=== PATIENT | female | born 1935 | race Caucasian/White ===

== ENCOUNTER 2016-11-19 10:30 | Emergency (ER) | payer MEDICARE, OTHER ==
[~2016-11-19] VITALS: Ht 165.1 cm; Wt 48.5 kg
[~2016-11-19 10:30] MED LIST: ESTR0.3T PO; NADO40TA; TELM80TA
[2016-11-19] MEDS ORDERED: cloNIDine HCL 0.1 MG TAB PO ONE (11:45)
[2016-11-19 12:45] LABS: Basophils # (auto) 0.1 uL; Basophils % (auto) 0.5 % (0.0-2.0); Eosinophils # (auto) 0.1 uL; Eosinophils % (auto) 0.7 % (0.0-7.0); Hematocrit 41.5 % (36.0-46.0); Hemoglobin 13.7 g/dL (12.2-16.2); Lymphocytes # (auto) 4.5 uL; Lymphocytes % (auto) 41.6 % (10.0-50.0); Mean Corpuscular Hemoglobin 30.7 pg (28.0-32.0); Mean Corpuscular Hgb Conc. 33.2 g/dL (32.0-36.0); Mean Corpuscular Volume 92.7 fL (80.0-100.0); Mean Platelet Volume 10.6 fL (7.4-10.4); Monocytes # (auto) 0.7 uL; Monocytes % (auto) 6.6 % (0.0-12.0); Neutrophils # (auto) 5.5 uL; Neutrophils % (auto) 50.6 % (37.0-80.0); Platelet Count (auto) 193 10^3/uL (140-450); Red Cell Distribution Width 13.9 % (11.6-16.0); White Blood Cell 10.8 10^3/uL (4.4-10.8)
[2016-11-19 13:04] VITALS: BP 147/93
[2016-11-19 13:13] LABS: Albumin 3.1 g/dL (3.4-5.0); BUN/Creatinine Ratio 20.2; Bilirubin, Total 0.4 mg/dL (0.2-1.0); Calcium 8.7 mg/dL (8.5-10.1); Magnesium 2.7 mg/dL (1.6-2.6); Potassium 4.5 mmol/L (3.5-5.1); Total Protein 7.1 g/dL (6.4-8.2)
== END 2016-11-19 14:09 | disposition home or self-care (01) ==
LOC: ER 10:30
DX: R07.89 Other chest pain (principal); I16.0 Hypertensive urgency; K21.9 Gastro-esophageal reflux disease without esophagitis; I10 Essential (primary) hypertension; Z87.891 Personal history of nicotine dependence; Z88.6 Allergy status to analgesic agent
CPT/HCPCS: 36415; 71020; 80053; 83735; 84484; 85025; 93005; 94761; 99285; J7030

== ENCOUNTER → 2017-01-14 | Outpatient (CLI) | payer MEDICARE, OTHER ==
[~2017-01-14] MED LIST changes: +APIX2.5T PO; +ASPI81CH43 PO; +ATOR20TA50 PO; +CLON0.1T PO; +LEVO500T3 PO; +LOSA100T27 PO; +MET50T PO
== END | disposition home or self-care (01) ==
LOC: XYW 09:55
PROVIDERS: ATTEND Internal Medicine Cardiovascular Disease
DX: I11.9 Hypertensive heart disease without heart failure (principal); I70.0 Atherosclerosis of aorta; I08.0 Rheumatic disorders of both mitral and aortic valves; I27.2 Other secondary pulmonary hypertension
CPT/HCPCS: 93306

== ENCOUNTER 2017-02-06 19:48 | Emergency (ER) | payer MEDICARE, OTHER ==
[~2017-02-06] VITALS: Ht 167.6 cm; Wt 63.5 kg
[~2017-02-06 19:48] MED LIST changes: +ATOR10TA52 PO; +CLO01T PO; +EST0625T PO; +METO-159 PO
[2017-02-06 19:57] VITALS: BP 192/71
[2017-02-06 20:30] LABS: Basophils # (auto) 0.1 uL; Basophils % (auto) 0.9 % (0.0-2.0); Eosinophils # (auto) 0.1 uL; Eosinophils % (auto) 1.2 % (0.0-7.0); Hematocrit 36.2 % (36.0-46.0); Hemoglobin 12.1 g/dL (12.2-16.2); Lymphocytes # (auto) 3.1 uL; Lymphocytes % (auto) 33.5 % (10.0-50.0); Mean Corpuscular Hemoglobin 30.8 pg (28.0-32.0); Mean Corpuscular Hgb Conc. 33.5 g/dL (32.0-36.0); Mean Corpuscular Volume 91.7 fL (80.0-100.0); Mean Platelet Volume 9.9 fL (7.4-10.4); Monocytes # (auto) 0.7 uL; Monocytes % (auto) 8.1 % (0.0-12.0); Neutrophils # (auto) 5.2 uL; Neutrophils % (auto) 56.3 % (37.0-80.0); Platelet Count (auto) 190 10^3/uL (140-450); White Blood Cell 9.2 10^3/uL (4.4-10.8)
[2017-02-06 21:11] LABS: Albumin 2.5 g/dL (3.4-5.0); Anion Gap 10 (5-15); Aspartate Aminotransferase 29 U/L (15-37); BUN/Creatinine Ratio 34.7; Blood Urea Nitrogen 25 mg/dL (7-18); Calcium 7.9 mg/dL (8.5-10.1); Carbon Dioxide 23 mmol/L (21-32); Chloride 109 mmol/L (98-107); GFR African American 99 mL/min; GFR Non-African American 82 mL/min; Glucose 103 mg/dL (74-106); Potassium 4.4 mmol/L (3.5-5.1); Sodium 142 mmol/L (136-145)
[2017-02-06 21:15] LABS: Alkaline Phosphatase 91 U/L (45-117); Bilirubin, Total 0.2 mg/dL (0.2-1.0); Total Protein 6.7 g/dL (6.4-8.2)
== END 2017-02-07 01:07 | disposition left against medical advice (07) ==
LOC: ER 19:51
DX: R00.2 Palpitations (principal); F41.9 Anxiety disorder, unspecified; Z53.21 Procedure and treatment not carried out due to patient leaving prior to being seen by health care provider
CPT/HCPCS: 36415; 71010; 80053; 84484; 85025

== ENCOUNTER → 2020-02-01 | Outpatient (CLI) | payer MEDICARE, OTHER ==
[~2020-02-01] MED LIST changes: +ALPR0.254 PO; -ASPI81CH43 PO; -ATOR10TA52 PO; -CLON0.1T PO; -LEVO500T3 PO; +LOSA-39 PO; -LOSA100T27 PO; -MET50T PO; -METO-159 PO; -NADO40TA; +NADO40TA PO; -TELM80TA
== END | disposition home or self-care (01) ==
LOC: XYW 09:32
PROVIDERS: ATTEND Internal Medicine
DX: I08.8 Other rheumatic multiple valve diseases (principal); I48.91 Unspecified atrial fibrillation
CPT/HCPCS: 93306